=== PATIENT | male | born 1985 | race Caucasian/White ===

== ENCOUNTER 2016-08-30 18:58 | Emergency (ER) | payer SELFPAY ==
[2016-08-30] MEDS ORDERED: ACETAMINOPHEN 325 MG TABLET PO ONE (19:41)
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
[2016-08-30] MEDS ORDERED: NAPROXEN 250 MG TABLET PO ONE (22:34)
[2016-08-30 23:26] VITALS: BP 132/80
--- NOTE | 2016-08-30 23:57 | EKG REPORT ---
SEVERITY:- NORMAL ECG - SINUS RHYTHM : Confirmed by: Ileana Kaye 30-Aug-2016 23:56:40
== END 2016-08-30 23:00 | disposition home or self-care (01) ==
LOC: ER 18:58
DX: S20.211A Contusion of right front wall of thorax, initial encounter (principal); R07.9 Chest pain, unspecified; R07.81 Pleurodynia; F17.210 Nicotine dependence, cigarettes, uncomplicated; W01.190A Fall on same level from slipping, tripping and stumbling with subsequent striking against furniture, initial encounter
CPT/HCPCS: 93005; 93010; 99283